=== PATIENT | male | born 1985 | race Caucasian/White ===

== ENCOUNTER 2023-02-02 14:07 | Outpatient (CLI) | payer BC | END 2023-02-02 14:08 | disposition home or self-care (01) | LOC: SCSMRI 14:07 | PROVIDERS: ATTEND Anesthesiology Pain Medicine | DX: M51.16 Intervertebral disc disorders with radiculopathy, lumbar region (principal); M51.37 Other intervertebral disc degeneration, lumbosacral region; M25.78 Osteophyte, vertebrae; M51.27 Other intervertebral disc displacement, lumbosacral region | CPT/HCPCS: 72110; 72148 ==